=== PATIENT | female | born 1940 | race Caucasian/White ===

== ENCOUNTER → 2016-05-26 | Day surgery (SDC) | payer OTHER ==
[2016-05-15 10:20] VITALS: BMI 27.0
[~2016-05-26] VITALS: Ht 147.3 cm; Wt 60.0 kg
[~2016-05-26] MED LIST: ASPI-461 PO; ATOR-24 PO; ATOR-26 PO; B-COTAB18 PO; CALC600T9 PO; CIPR-255 PO; GLUCTAB7 PO; HYDR12.56 PO; LIDOCAINE HCL 2% 2 ML VIAL (20MG/ML) ONE; LISI40TA PO; MIDAZOLAM HCL 1 MG/ML 2ML VIAL ONE; MULT-190 PO; MULT-513 PO; NITR1CAP33 PO; OMEG10007 PO; ONDA4TAB46 PO; ONDANSETRON INJ 2 MG/ML 2 ML VIAL ONE; OXYC-57 PO; PHEN-775 PO; PROPOFOL IV EMULSION 10 MG/ML 20 ML VIAL IV ONE; SODIUM CHLORIDE 0.9% 500ML 500 ML IV ONE; TAMS0.4C38 PO; VENL75CA73 PO
[2016-05-26 12:10] VITALS: Ht 147.3 cm; Wt 60.0 kg
[2016-05-26 12:27] VITALS: TEMP 36.7
--- NOTE | 2016-05-26 12:58 | Endo History and Physical ---
History & Physical Date of Service: May 26, 2016. Chief Complaint: ROUTINE SCREENING Referring Physician: OLIVER BARBOZA History of Present Illness 75 yo CF who presents for screening colonoscopy. Past Surgical History Hx Cardiac Surgery: Yes (LT THROMBOENDARTERECTOMY, CARDIAC CATH, CABG X1) Hx Internal Defibrillator: No Hx Pacemaker: No Hx Abdominal Surgery: Yes (OOPHORECTOMY) Hx of Implantable Prosthesis: No Hx Post-Op Nausea and Vomiting: No Hx Cancer Surgery: No Hx Thoracic Surgery: No Hx Orthopedic: No Hx Urinary Tract Surgery: No Family History Colon CA Social History Smoking Status: Former Smoker Hx Substance Use: No Hx Alcohol Use: No Allergies Coded Allergies: Propoxyphene (Verified Allergy, Unknown, HEADACHE, 05/26/16) Simvastatin (Verified Adverse Reaction, Unknown, LEGS ACHE, 05/26/16) Current Medications Reported Home Medications Medications Dose Route/Sig Max Daily Dose Days Date Category Glucosamine Chondroitin (Bislywgnpnu-Fkrcmumzkfv-Tim C-) 1 Tab Tab 1 Tab PO BID 05/15/16 Reported [place]-3 (Fish Oil) 1 Ea Cap 1 Cap PO QAM 05/15/16 Reported Calcium + D (Calcium Carbonate-Vitamin D) 1 Tab Tab 1 Tab PO QAM 05/15/16 Reported Mvi With Minerals (Multivitamins/Minerals) Tab 1 Tab PO QAM 05/15/16 Reported Vitamin B Complex (B-Complex Vitamins) 1 Tab Tab 1 Tab PO QAM 05/15/16 Reported Venlafaxine Extended Rel (Venlafaxine Hcl) 75 Mg Cap 2 Tabs PO HS 05/15/16 Reported Lipitor (Atorvastatin Calcium) 40 Mg Tab 40 Mg PO HS 05/15/16 Reported Zestril (Lisinopril) 40 Mg Tab 40 Mg PO QAM 05/15/16 Reported Aspirin 81 Mg Tab 1 Tab PO QAM 05/15/16 Reported Vital Signs Weight (Kilograms): 60.00 Height (Feet): 4 Height (Inches): 10 Date Time Temp Pulse Resp B/P Pulse Ox O2 Delivery O2 Flow Rate FiO2 05/26/16 12:27 36.7 68 18 111/52 96 Room Air Physical Exam General Appearance: WD/WN, no apparent distress Respiratory/Chest: Auscultation: breath sounds normal Cardiovascular: Heart Auscultation: RRR Abdomen: Bowel Sounds: normal Inspection & Palpation: soft, non-distended, no tenderness, guarding & rebound Assessment and Plan Assessment: 75 yo CF who presents for screening colonoscopy. Plan: Proceed with colonoscopy.
--- NOTE | 2016-05-26 13:22 | Discharge Instructions ---
Endoscopy Patient Instructions Date / Procedure(s) Performed May 26, 2016. Colonoscopy Allergy Information Coded Allergies: Propoxyphene (Verified Allergy, Unknown, HEADACHE, 05/26/16) Simvastatin (Verified Adverse Reaction, Unknown, LEGS ACHE, 05/26/16) Discharge Date / Findings May 26, 2016. Colon polyp Diverticulosis Internal hemorrhoids Medication Instructions Stopped Medication(s): ASA 05/26/16 OK to resume all medications today as prescribed. Reported Home Medications Medications Dose Route/Sig Max Daily Dose Days Date Category Glucosamine Chondroitin (Lexppvglxni-Rsjdahmkdfl-Xtj C-) 1 Tab Tab 1 Tab PO BID 05/15/16 Reported [place]-3 (Fish Oil) 1 Ea Cap 1 Cap PO QAM 05/15/16 Reported Calcium + D (Calcium Carbonate-Vitamin D) 1 Tab Tab 1 Tab PO QAM 05/15/16 Reported Mvi With Minerals (Multivitamins/Minerals) Tab 1 Tab PO QAM 05/15/16 Reported Vitamin B Complex (B-Complex Vitamins) 1 Tab Tab 1 Tab PO QAM 05/15/16 Reported Venlafaxine Extended Rel (Venlafaxine Hcl) 75 Mg Cap 2 Tabs PO HS 05/15/16 Reported Lipitor (Atorvastatin Calcium) 40 Mg Tab 40 Mg PO HS 05/15/16 Reported Zestril (Lisinopril) 40 Mg Tab 40 Mg PO QAM 05/15/16 Reported Aspirin 81 Mg Tab 1 Tab PO QAM 05/15/16 Reported Provider Instructions Activity Restrictions - No exercising or heavy lifting for 24 hours. - Do not drink alcohol the day of the procedure. - Do not drive a car or operate machinery until the day after the procedure. - Do not make any important decisions or sign important papers in 24 hours after the procedure. Following Day: - Return to full activity which may include returning to work/school. Diet Start your diet with liquids and light foods (jello, soup, juice, toast). Then eat your usual diet if not nauseated. Treatment For Common After Affects For mild abdominal pain, bloating, or excessive gas: - Rest - Eat lightly - Lie on right side Follow-Up Information Follow-up with OLIVER BARBOZA as scheduled Anesthesia Information What You Should Know You have had a procedure that required some medicine to reduce anxiety and discomfort. This treatment is called moderate sedation. After receiving the treatment, you may be sleepy, but you will be able to breathe on your own. The effects of the treatment may last for several hours. Follow these instructions along with Activity/Diet recommendations noted above: * Do NOT do anything where dizziness or clumsiness would be dangerous. * Rest quietly at home today, then you can be up and about tomorrow. * Have a responsible person stay with you the rest of today. * You may have had an I.V. today. If so, you may take the dressing off later today. Recommendations Call your doctor if: * Trouble breathing * Continuous vomiting for more than 24 hours * Temperature above 101 degrees * Severe abdominal pain or bloating * Pain not relieved by pain medicine ordered * There is increased drainage or redness from any incision * A large amount of rectal bleeding greater than 2-3 tablespoons. (If you had a polyp/s removed or have hemorrhoids, a small amount of blood - from the rectum is to be expected.) * You have any unanswered questions or concerns. IN THE EVENT OF A SERIOUS EMERGENCY, GO TO THE NEAREST EMERGENCY ROOM Your discharge instructions were prepared by provider Ortega Carreon. Patient Instructions Signature Page Madelyn Sharp Patient (or Guardian) Signature/Date: I have read and understand the instructions given to me by my caregivers. Caregiver/RN/Doctor Signature/Date: The above-named patient and/or guardian has received patient instructions on this date. + Original Patient Signature Page (only) stays with chart. Please make copy for patient.
--- NOTE | 2016-05-26 13:25 | GI REPORT ---
Procedure Date: 05/26/2016 12:11 PM Procedure: Colonoscopy Indications: Screening for colorectal malignant neoplasm Medicines: Monitored Anesthesia Care Complications: No immediate complications. Estimated Blood Loss: Estimated blood loss: none. Procedure: Pre-Anesthesia Assessment: - Prior to the procedure, a History and Physical was performed, and patient medications and allergies were reviewed. The patient's tolerance of previous anesthesia was also reviewed. The risks and benefits of the procedure and the sedation options and risks were discussed with the patient. All questions were answered, and informed consent was obtained. Prior Anticoagulants: The patient has taken aspirin, last dose was 1 day prior to procedure. ASA Grade Assessment: III - A patient with severe systemic disease. After reviewing the risks and benefits, the patient was deemed in satisfactory condition to undergo the procedure. After I obtained informed consent, the scope was passed under direct vision. Throughout the procedure, the patient's blood pressure, pulse, and oxygen saturations were monitored continuously. The scope was introduced through the anus and advanced to the terminal ileum. The colonoscopy was performed without difficulty. The patient tolerated the procedure well. The quality of the bowel preparation was good. The terminal ileum, ileocecal valve, appendiceal orifice, and rectum were photographed. Findings: A 5 mm polyp was found in the cecum. The polyp was sessile. The polyp was removed with a hot snare. Resection and retrieval were complete. Multiple small-mouthed diverticula were found in the sigmoid colon. Non-bleeding internal hemorrhoids were found during retroflexion. The hemorrhoids were small. Impression: - One 5 mm polyp in the cecum, removed with a hot snare. Resected and retrieved. - Diverticulosis in the sigmoid colon. - Non-bleeding internal hemorrhoids. Recommendation: - Resume previous diet. - Continue present medications. - Repeat colonoscopy for surveillance based on pathology results. - Return to primary care physician as previously scheduled. Ortega Carreon DO 05/26/2016 1:25:46 PM This report has been signed electronically. Note Initiated On: 05/26/2016 12:11 PM I attest to the content of the Intraoperative Record and orders documented therein, exceptions below
--- NOTE | 2016-05-26 13:45 | Anesthesiology Progress Note ---
Anesthesia Post Op Note Date & Time May 26, 2016 at 13:46 Vital Signs Pain Intensity: 0 Vital Signs Past 12 Hours Date Time Temp Pulse Resp B/P Pulse Ox O2 Delivery O2 Flow Rate FiO2 05/26/16 13:22 59 18 164/58 95 Room Air 05/26/16 12:27 36.7 68 18 111/52 96 Room Air Notes Mental Status: alert / awake / arousable, participated in evaluation Pt Amnestic to Procedure: Yes Nausea / Vomiting: adequately controlled Pain: adequately controlled Airway Patency, RR, SpO2: stable & adequate BP & HR: stable & adequate Hydration State: stable & adequate Anesthetic Complications: no major complications apparent
[2016-05-26 13:52] VITALS: BP 147/65; PULSE 62; O2SAT 96
== END | disposition home or self-care (01) ==
LOC: C.GI 12:02
PROVIDERS: ATTEND Internal Medicine
DX: Z12.11 Encounter for screening for malignant neoplasm of colon (principal); I10 Essential (primary) hypertension; D12.0 Benign neoplasm of cecum; K57.30 Diverticulosis of large intestine without perforation or abscess without bleeding; Z68.28 Body mass index [BMI] 28.0-28.9, adult; F32.9 Major depressive disorder, single episode, unspecified; M19.90 Unspecified osteoarthritis, unspecified site; Z98.890 Other specified postprocedural states; Z87.891 Personal history of nicotine dependence; Z80.0 Family history of malignant neoplasm of digestive organs

== ENCOUNTER 2016-06-05 17:22 | Emergency (ER) | payer OTHER ==
[~2016-06-05] VITALS: Ht 147.3 cm; Wt 61.0 kg
[~2016-06-05 17:22] MED LIST changes: -ATOR-26 PO; -CIPR-255 PO; -HYDR12.56 PO; -LIDOCAINE HCL 2% 2 ML VIAL (20MG/ML) ONE; -MIDAZOLAM HCL 1 MG/ML 2ML VIAL ONE; -MULT-190 PO; -NITR1CAP33 PO; -ONDA4TAB46 PO; -ONDANSETRON INJ 2 MG/ML 2 ML VIAL ONE; -OXYC-57 PO; -PHEN-775 PO; -PROPOFOL IV EMULSION 10 MG/ML 20 ML VIAL IV ONE; -SODIUM CHLORIDE 0.9% 500ML 500 ML IV ONE; -TAMS0.4C38 PO
[2016-06-05 17:32] VITALS: TEMP 37; Ht 147.3 cm; Wt 61.0 kg
[2016-06-05] MEDS ORDERED: SODIUM CHLORIDE 0.9% 1000ML 1,000 ML IV STA (17:38)
[2016-06-05] MEDS ORDERED: ONDANSETRON INJ 2 MG/ML 2 ML VIAL IV STA (17:38)
[2016-06-05] MEDS ORDERED: HYDROmorphone INJ 1 MG/ML SYR IV STA (17:57)
[2016-06-05] MEDS ORDERED: KETOROLAC TROMETHAMINE 30 MG/ML VIAL IV STA (17:57)
[2016-06-05] MEDS ORDERED: ACETAMINOPHEN 500 MG TAB PO STA (17:57)
--- NOTE | 2016-06-05 18:03 | EMERGENCY ROOM VISIT NOTE ---
History Report prepared by Lester: Alin Kaplan Under the Supervision of: Dr. Ashley Moseley M.D. First contact with patient: 17:37 Chief Complaint: NAUSEA Stated Complaint: PAIN IN L SIDE, NAUSEA Nursing Triage Summary: Patient reports left sided abd pain and nausea for days but states it is worse today. Patient told she has diverticulosis after a recent colonoscopy History of Present Illness The patient is a 75 year old female who presents to the Emergency Room with complaints of worsening left sided abdominal pain that started a few days ago but is worse today. She rates her pain a 10/10 at this time. The patient had a routine colonoscopy performed last week which per the patient, showed diverticulosis. Source of History: patient Onset: Started a few days ago, worse today Position: abdomen Symptom Intensity: 10/10 Timing: worsening Modifying Factors (Worsening): other (None) Review of Systems See HPI for pertinent positives & negatives. A total of 10 systems reviewed and were otherwise negative. Family History Unknown Social History Smoking Status: Never Smoker Drug Use: none Marital Status: Housing Status: lives with significant other Current/Historical Medications Scheduled Aspirin (Aspirin), 1 TAB PO QAM Atorvastatin (Lipitor), 40 MG PO HS B-Complex Vitamins (Vitamin B Complex), 1 TAB PO QAM Calcium Carbonate-Vitamin D (Calcium + D), 1 TAB PO QAM Fish Oil ([place]-3), 1 CAP PO QAM Wcudjxdxvxa-Qfhrchkrbfv-Ues C- (Glucosamine Chondroitin), 1 TAB PO BID Lisinopril (Zestril), 40 MG PO QAM Multivitamins/Minerals (Mvi With Minerals), 1 TAB PO QAM Tamsulosin Hcl (Flomax), 0.4 MG PO DAILY Venlafaxine Hcl (Venlafaxine Extended Rel), 2 TABS PO HS Scheduled PRN Ondansetron Hcl (Zofran), 4 MG PO Q8H PRN for Nausea Oxycodone/Acetaminophen 5MG/325MG (Percocet 5MG/325MG), 1-2 TABS PO Q4H PRN for Pain Allergies Coded Allergies: Propoxyphene (Verified Allergy, Unknown, HEADACHE, 05/26/16) Simvastatin (Verified Adverse Reaction, Unknown, LEGS ACHE, 05/26/16) Physical Exam Vital Signs Date Time Temp Pulse Resp B/P Pulse Ox O2 Delivery O2 Flow Rate FiO2 06/05/16 21:10 66 20 127/68 94 06/05/16 20:55 66 20 112/49 93 Room Air 06/05/16 20:03 70 20 99/50 93 Room Air 06/05/16 18:46 69 06/05/16 17:32 37.0 70 20 169/79 95 Room Air Physical Exam CONSTITUTIONAL: Moderate painful distress HEENT: No icterus, moist mucous membranes NECK: No meningismus, trachea is midline. CARDIOVASCULAR: Regular rate, normal perfusion RESPIRATORY: Unlabored breathing. Clear to auscultation. GASTROINTESTINAL: Moderate left lower quadrant tenderness GENITOURINARY: No flank tenderness MUSCULOSKELETAL: Full range of motion NEUROLOGIC: No acute gross focal deficits. PSYCHIATRIC: Normal affect SKIN: Normal for ethnicity. Medical Decision & Procedures ER Provider Diagnostic Interpretation: CT results as stated below per my review and radiologist interpretation. ABDOMEN AND PELVIS CT WITH IV CONTRAST CT DOSE: 316.68 mGy.cm HISTORY: Flank and abdominal pain left flank pain TECHNIQUE: Multiaxial CT images of the abdomen and pelvis were performed following the use of intravenous contrast. COMPARISON STUDY: None. FINDINGS: Lung bases are clear. Liver is uniform throughout. Gallstones are present within the gallbladder lumen. There kidneys demonstrate several very small cortical cysts. There is a partially obstructing proximal left ureteral calculus measuring 3.5 mm. Mild fullness left renal collecting system but no daisy hydronephrosis. Spleen is uniform. Bowel pattern is nonobstructive. Scattered colonic diverticuli are present with no evidence for diverticulitis. Bladder is midline. Inguinal regions are unremarkable. IMPRESSION: 1. Partially obstructing 3.5 mm calculus proximal left ureter. 2. Gallstones. 3. Nonobstructive bowel pattern. Electronically signed by: Elmo Staley M.D. 06/05/2016 7:49 PM Dictated Date/Time: 06/05/2016 7:46 PM Laboratory Results 06/05/16 18:30 Red Blood Count 4.28, Mean Corpuscular Volume 93.9, Mean Corpuscular Hemoglobin 33.6, Mean Corpuscular Hemoglobin Concent 35.8, Mean Platelet Volume 10.5, Neutrophils (%) (Auto) 80.3, Lymphocytes (%) (Auto) 11.4, Monocytes (%) (Auto) 7.5, Eosinophils (%) (Auto) 0.4, Basophils (%) (Auto) 0.2, Neutrophils # (Auto) 11.12, Lymphocytes # (Auto) 1.58, Monocytes # (Auto) 1.04, Eosinophils # (Auto) 0.05, Basophils # (Auto) 0.03 06/05/16 18:30 Test 06/05/16 18:15 06/05/16 18:30 Urine Color DK YELLOW Urine Appearance TURBID (CLEAR) Urine pH 5.0 (4.5-7.5) Urine Specific [place] 1.023 (1.000-1.030) Urine Protein TRACE (NEG) Urine Glucose (UA) NEG (NEG) Urine Ketones TRACE (NEG) Urine Occult Blood 3+ (NEG) Urine Nitrite POS (NEG) Urine Bilirubin NEG (NEG) Urine Urobilinogen NEG (NEG) Urine Leukocyte Esterase SMALL (NEG) Urine WBC (Auto) 1-5 /hpf (0-5) Urine RBC (Auto) >30 /hpf (0-4) Urine Hyaline Casts (Auto) 1-5 /lpf (0-5) Urine Epithelial Cells (Auto) 20-30 /lpf (0-5) Urine Bacteria (Auto) NEG (NEG) Urine Crystals CALCIUM OXALATE (NONE Urine Mucus PRESENT (NONE PRSENT) White Blood Count 13.85 K/uL (4.8-10.8) Red Blood Count 4.28 M/uL (4.2-5.4) Hemoglobin 14.4 g/dL (12.0-16.0) Hematocrit 40.2 % (37-47) Mean Corpuscular Volume 93.9 fL (80-100) Mean Corpuscular Hemoglobin 33.6 pg (25-34) Mean Corpuscular Hemoglobin Concent 35.8 g/dl (32-36) Platelet Count 192 K/uL (130-400) Mean Platelet Volume 10.5 fL (7.4-10.4) Neutrophils (%) (Auto) 80.3 % Lymphocytes (%) (Auto) 11.4 % Monocytes (%) (Auto) 7.5 % Eosinophils (%) (Auto) 0.4 % Basophils (%) (Auto) 0.2 % Neutrophils # (Auto) 11.12 K/uL (1.4-6.5) Lymphocytes # (Auto) 1.58 K/uL (1.2-3.4) Monocytes # (Auto) 1.04 K/uL (0.11-0.59) Eosinophils # (Auto) 0.05 K/uL (0-0.5) Basophils # (Auto) 0.03 K/uL (0-0.2) RDW Standard Deviation 43.9 fL (36.4-46.3) RDW Coefficient of Variation 12.8 % (11.5-14.5) Immature Granulocyte % (Auto) 0.2 % Immature Granulocyte # (Auto) 0.03 K/uL (0.00-0.02) Anion Gap 10.0 mmol/L (3-11) Est Creatinine Clear Calc Drug Dose 29.3 ml/min Estimated GFR () 46.8 Estimated GFR (Non- 40.4 BUN/Creatinine Ratio 20.4 (10-20) Calcium Level 9.8 mg/dl (8.5-10.1) Total Bilirubin 0.8 mg/dl (0.2-1) Direct Bilirubin 0.2 mg/dl (0-0.2) Aspartate Amino Transf (AST/SGOT) 36 U/L (15-37) Alanine Aminotransferase (ALT/SGPT) 45 U/L (12-78) Alkaline Phosphatase 92 U/L (45-117) Troponin I < 0.015 ng/ml (0-0.045) Total Protein 7.4 gm/dl (6.4-8.2) Albumin 3.8 gm/dl (3.4-5.0) Lipase 102 U/L (73-393) Labs reviewed by ED physician. Medications Administered Medications (Trade) Dose Ordered Sig/Maciel Route Start Time Stop Time Status Last Admin Dose Admin Sodium Chloride (Nss 1000ml) 1,000 ml @ 0 mls/hr Q0M STAT IV 06/05/16 17:38 06/05/16 17:39 DC 06/05/16 18:31 0 MLS/HR Ondansetron HCl (Zofran Inj) 4 mg NOW STAT IV 06/05/16 17:38 06/05/16 17:39 DC 06/05/16 18:30 4 MG Acetaminophen (Tylenol Tab) 1,000 mg NOW STAT PO 06/05/16 17:57 06/05/16 18:00 DC 06/05/16 18:30 1,000 MG Ketorolac Tromethamine (Toradol Inj) 15 mg NOW STAT IV 06/05/16 17:57 06/05/16 18:00 DC 06/05/16 18:30 15 MG Hydromorphone HCl (Dilaudid Inj) 1 mg PRN STAT IV 06/05/16 17:57 06/05/16 18:00 DC 06/05/16 18:31 1 MG Ondansetron HCl (ZOFRAN ODT 4MG Home Pack) 1 homepack UD ONCE PO 06/05/16 21:00 06/05/16 21:01 DC 06/05/16 21:06 1 HOMEPACK Oxycodone/ Acetaminophen (Percocet 5/ 325MG Home Pack) 1 homepack UD ONCE PO 06/05/16 21:00 06/05/16 21:01 DC 06/05/16 21:06 1 HOMEPACK ED Course 1730: Past medical records reviewed. The patient was evaluated in room B4. A complete history and physical examination was performed. 1738: Ordered Zofran Injection 4 mg IV, Sodium Chloride 1,000 ml @ 0 mls/hr Wide Open IV. 1757: Ordered Dilaudid Injection 1 mg IV, Toradol Injection 15 mg IV, Tylenol Tablet 1,000 mg PO. 2100: Ordered Oxycodone/ Acetaminophen 1 homepack PO, Ondansetron HCL 1 homepack PO. 2101: Upon reexamination the patient is resting more comfortably. I discussed results and treatment plan with the patient. She verbalizes agreement and understanding. The patient is ready for discharge. Medical Decision Differential diagnoses include but are not limited to; Pyelonephritis, diverticulitis, UTI. 75-year-old presents to the emergency department for evaluation of vague left lower quadrant pain as well as nausea. CT 3.5 mm stone. Comfortable on reexamination after antiemetics and analgesics. Rx Zofran, Flomax, Percocet when necessary. Impression Primary Impression: Kidney stone Scribe Attestation The scribe's documentation has been prepared under my direction and personally reviewed by me in its entirety. I confirm that the note above accurately reflects all work, treatment, procedures, and medical decision making performed by me. Departure Information Dispostion Home / Self-Care Prescriptions Ondansetron Hcl (ZOFRAN) 4 Mg Tab 4 MG PO Q8H Y for Nausea, #20 TAB Prov: Ashley Moseley MD 06/05/16 Oxycodone/Acetaminophen 5MG/325MG (PERCOCET 5MG/325MG) Tab 1-2 TABS PO Q4H Y for Pain, #20 TAB Prov: Ashley Moseley MD 06/05/16 Tamsulosin Hcl (FLOMAX) 0.4 Mg Cap 0.4 MG PO DAILY for 10 Days, #10 CAP Prov: Ashley Moseley MD 06/05/16 Referrals Daisy Sullivan M.D. (PCP) Forms HOME CARE DOCUMENTATION FORM, IMPORTANT VISIT INFORMATION Patient Instructions My [facility] Additional Instructions Take Tylenol 650 mg and Motrin 600 mg every 6 hours as needed for pain. This is insufficient for pain relief he may also take the prescription for Percocet with these every 6 hours. Continue to take the Rx: Flomax as this will help the stone pass. Rx: zofran is to be taken as needed for nausea.
[2016-06-05] MEDS ORDERED: OPTIRAY 320 IV PRN (18:15)
[2016-06-05 18:49] LABS: BASO % 0.2 %; BASO ABS # 0.03 K/uL (0-0.2); COMPLETE YES; EOS % 0.4 %; HEMATOCRIT 40.2 % (37-47); IG% 0.2 %; LYMPH % 11.4 %; LYMPH ABS # 1.58 K/uL (1.2-3.4); MEAN CELL VOLUME 93.9 fL (80-100); MEAN CORPUSCULAR HEMOGLOBIN 33.6 pg (25-34); MEAN CORPUSCULAR HGB CONC 35.8 g/dl (32-36); MEAN PLATELET VOLUME 10.5 fL (7.4-10.4); MONO % 7.5 %; NEUT % 80.3 %; PLATELET COUNT 192 K/uL (130-400); RED BLOOD COUNT 4.28 M/uL (4.2-5.4); WHITE BLOOD COUNT 13.85 K/uL (4.8-10.8)
[2016-06-05 19:07] LABS: ALT/SGPT 45 U/L (12-78); AST/SGOT 36 U/L (15-37); BLOOD UREA NITROGEN 27 mg/dl (7-18); BUN/CREATININE RATIO 20.4 (10-20); CALCIUM 9.8 mg/dl (8.5-10.1); CARBON DIOXIDE 26 mmol/L (21-32); CHLORIDE 105 mmol/L (98-107); GLUCOSE 115 mg/dl (70-99); POTASSIUM 4.4 mmol/L (3.5-5.1); SODIUM 141 mmol/L (136-145)
[2016-06-05 19:12] LABS: ALKALINE PHOSPHATASE 92 U/L (45-117)
[2016-06-05 19:12] LABS: URINE APPEARANCE TURBID (CLEAR); URINE BILIRUBIN NEG (NEG); URINE COLOR DK YELLOW; URINE EPITHELIAL CELL AUTO 20-30 /lpf (0-5); URINE NITRITE POS (NEG); URINE SPECIFIC GRAVITY 1.023 (1.000-1.030); UROBILINOGEN NEG (NEG); ZZUR CULT IF INDIC CLEAN CATCH NO
[2016-06-05 19:17] LABS: MANUAL MICROSCOPIC REQUIRED? NO; REVIEW REQ? YES
[2016-06-05 19:37] LABS: URINE MUCUS PRESENT (NONE PRSENT)
--- NOTE | 2016-06-05 19:50 | DIAGNOSTIC IMAGING REPORT ---
ABDOMEN AND PELVIS CT WITH IV CONTRAST CT DOSE: 316.68 mGy.cm HISTORY: Flank and abdominal pain left flank pain TECHNIQUE: Multiaxial CT images of the abdomen and pelvis were performed following the use of intravenous contrast. COMPARISON STUDY: None. FINDINGS: Lung bases are clear. Liver is uniform throughout. Gallstones are present within the gallbladder lumen. There kidneys demonstrate several very small cortical cysts. There is a partially obstructing proximal left ureteral calculus measuring 3.5 mm. Mild fullness left renal collecting system but no daisy hydronephrosis. Spleen is uniform. Bowel pattern is nonobstructive. Scattered colonic diverticuli are present with no evidence for diverticulitis. Bladder is midline. Inguinal regions are unremarkable. IMPRESSION: 1. Partially obstructing 3.5 mm calculus proximal left ureter. 2. Gallstones. 3. Nonobstructive bowel pattern. Electronically signed by: Elmo Staley M.D. 06/05/2016 7:49 PM Dictated Date/Time: 06/05/2016 7:46 PM
[2016-06-05] MEDS ORDERED: TAMS0.4C38 PO (20:50)
[2016-06-05] MEDS ORDERED: OXYC-57 PO (20:51)
[2016-06-05] MEDS ORDERED: ONDA4TAB46 PO (20:52)
[2016-06-05] MEDS ORDERED: PERCOCET HOME PACK PO ONE (21:00)
[2016-06-05] MEDS ORDERED: ONDANSETRON HOME PACK 4MG OD TAB PO ONE (21:00)
[2016-06-05 21:10] VITALS: BP 127/68; PULSE 66; O2SAT 94
[2016-07-11] MEDS ORDERED: ONDA4TAB46 PO (09:21)
[2016-07-11] MEDS ORDERED: OXYC-57 PO (09:21)
[2016-07-18] MEDS ORDERED: NITR1CAP33 PO (08:32)
[2016-08-06] MEDS ORDERED: TAMS0.4C38 PO (15:02)
[2016-08-19] MEDS ORDERED: PHEN-775 PO (11:19)
[2016-08-19] MEDS ORDERED: CIPR-255 PO (11:19)
[2016-12-09] MEDS ORDERED: HYDR12.56 PO (12:48)
[2016-12-09] MEDS ORDERED: MULT-190 PO (12:48)
[2016-12-09] MEDS ORDERED: ATOR-26 PO (12:48)
== END 2016-06-05 21:12 | disposition home or self-care (01) ==
LOC: C.EDB 17:24
DX: N20.2 Calculus of kidney with calculus of ureter (principal); K80.20 Calculus of gallbladder without cholecystitis without obstruction; N28.1 Cyst of kidney, acquired

== ENCOUNTER → 2016-06-17 | Outpatient (CLI) | payer OTHER ==
[~2016-06-17] MED LIST changes: +ATOR-26 PO; +CIPR-255 PO; +HYDR12.56 PO; +MULT-190 PO; +NITR1CAP33 PO; +ONDA4TAB46 PO; +OXYC-57 PO; +PHEN-775 PO; +TAMS0.4C38 PO
== END | disposition home or self-care (01) ==
LOC: C.LABSPEC 11:10
PROVIDERS: ATTEND Nurse Practitioner Adult Health
DX: N20.1 Calculus of ureter (principal)

== ENCOUNTER → 2016-06-23 | Outpatient (CLI) | payer OTHER ==
--- NOTE | 2016-06-23 09:08 | DIAGNOSTIC IMAGING REPORT ---
KUB HISTORY: N20.1 Left ureteral stone COMPARISON: Abdomen and pelvis CT 2. 1617. FINDINGS: The bowel gas pattern is unremarkable. There are no dilated loops of small bowel to suggest an obstruction. No renal stones identified. There is a 4 mm calcification within the left deep pelvis. This may represent a distal left ureteral stone. Punctate calcification within the right deep pelvis is nonspecific but may represent a phlebolith. Cholelithiasis. No pneumoperitoneum or pneumatosis. IMPRESSION: A 4 mm calcification within the left deep pelvis which may represent a distal left ureteral stone. Electronically signed by: Nacho Martinez M.D. 06/23/2016 9:07 AM Dictated Date/Time: 06/23/2016 9:04 AM
== END | disposition home or self-care (01) ==
LOC: C.RAD 08:32
PROVIDERS: ATTEND Nurse Practitioner Adult Health
DX: N20.1 Calculus of ureter (principal)

== ENCOUNTER → 2016-07-09 | Outpatient (CLI) | payer OTHER ==
[2016-07-09 12:06] LABS: BASO % 0.4 %; BASO ABS # 0.03 K/uL (0-0.2); COMPLETE YES; EOS % 3.9 %; HEMATOCRIT 38.7 % (37-47); IG% 0.1 %; LYMPH ABS # 2.51 K/uL (1.2-3.4); MEAN CELL VOLUME 95.8 fL (80-100); MEAN CORPUSCULAR HEMOGLOBIN 33.7 pg (25-34); MEAN CORPUSCULAR HGB CONC 35.1 g/dl (32-36); MEAN PLATELET VOLUME 10.6 fL (7.4-10.4); MONO % 7.9 %; NEUT % 51.7 %; PLATELET COUNT 197 K/uL (130-400); RED BLOOD COUNT 4.04 M/uL (4.2-5.4); WHITE BLOOD COUNT 6.97 K/uL (4.8-10.8)
--- NOTE | 2016-07-09 12:19 | DIAGNOSTIC IMAGING REPORT ---
TWO VIEW CHEST CLINICAL HISTORY: Nephrolithiasis. Preoperative examination. FINDINGS: PA and lateral chest radiographs are compared to study dated 04/06/2014. The cardiomediastinal silhouette is unremarkable. Surgical clips project over the superior mediastinum. There is atherosclerotic calcification of the thoracic aorta. There are low lung volumes. Chronic interstitial thickening is unchanged. The lungs and pleural spaces are otherwise clear. There is no pneumothorax. The skeletal structures are osteopenic. Mild degenerative change is noted throughout the thoracic spine. Calcified gallstones are noted in the right upper quadrant. IMPRESSION: 1. No active disease in the chest. 2. Cholelithiasis. Electronically signed by: Sacha Boston M.D. 07/09/2016 12:17 PM Dictated Date/Time: 07/09/2016 12:16 PM
[2016-07-09 12:36] LABS: BLOOD UREA NITROGEN 22 mg/dl (7-18); BUN/CREATININE RATIO 27.1 (10-20); CARBON DIOXIDE 31 mmol/L (21-32); CHLORIDE 106 mmol/L (98-107); CREATININE 0.82 mg/dl (0.60-1.20); POTASSIUM 4.5 mmol/L (3.5-5.1); SODIUM 143 mmol/L (136-145)
== END | disposition home or self-care (01) ==
LOC: C.RAD 11:23
PROVIDERS: ATTEND Nurse Practitioner Adult Health
DX: N20.0 Calculus of kidney (principal); K80.20 Calculus of gallbladder without cholecystitis without obstruction

== ENCOUNTER → 2016-07-09 | Outpatient (CLI) | payer OTHER ==
--- NOTE | 2016-07-09 09:27 | DIAGNOSTIC IMAGING REPORT ---
KUB HISTORY: N20.0 [id number] COMPARISON: KUB 06/23/2016. FINDINGS: The bowel gas pattern is unremarkable. There are no dilated loops of small bowel to suggest an obstruction. No change in the 4 mm calcification within the left deep pelvis. This may represent a distal left ureteral stone. Small irregular density along the right side of the coccyx may represent old barium in a diverticulum. No renal stones identified. Cholelithiasis. Moderate stool seen within the colon. No pneumoperitoneum or pneumatosis. IMPRESSION: No change in the 4 mm calcification within the left deep pelvis which likely represents a distal left ureteral stone. Electronically signed by: Nacho Martinez M.D. 07/09/2016 9:26 AM Dictated Date/Time: 07/09/2016 9:23 AM
== END | disposition home or self-care (01) ==
LOC: C.RAD 08:59
PROVIDERS: ATTEND Internal Medicine Geriatric Medicine
DX: N20.0 Calculus of kidney (principal)

== ENCOUNTER → 2016-07-18 | Day surgery (SDC) | payer OTHER ==
[2016-07-11 09:22] VITALS: Ht 147.3 cm; Wt 59.5 kg
--- NOTE | 2016-07-17 15:00 | DIAGNOSTIC IMAGING REPORT ---
KUB CLINICAL HISTORY: N20.0 Nephrolithiasis nephrocalcinosis COMPARISON STUDY: 07/09/2016 FINDINGS: No change in the distal left ureteral calculus. Several faint calcifications to the left of the L3 vertebral body and associated transverse process. This may relate to bowel content. Several punctate calcifications medial left kidney unchanged. IMPRESSION: Left sided nephrocalcinosis similar. 2. Distal left ureteral calculus unchanged Electronically signed by: Elmo Staley M.D. 07/17/2016 2:59 PM Dictated Date/Time: 07/17/2016 2:58 PM
[~2016-07-18] VITALS: Ht 147.3 cm; Wt 59.5 kg
[~2016-07-18] MED LIST changes: +ATROPINE SULFATE 0.1 MG/ML 5ML SYR IV PRN; +CIPROFLOXACIN 400MG / D5W IV SCH; +DEXAMETHASONE SOD INJ 4 MG/ML VIAL ONE; +EpHEDrine SULFATE INJ 50 MG/ML AMP IV PRN; +FENTANYL CITRATE INJ 50 MCG/1 ML 2 ML VIAL IV PRN; +FENTANYL CITRATE INJ 50 MCG/1 ML 2 ML VIAL ONE; +FLUMAZENIL 0.1 MG/1 ML 10 ML VIAL IV PRN; +HYDROmorphone INJ 2 MG/ML SYR/VIAL IV PRN; +LABETALOL HCL IV 5 MG/ML 20ML IV PRN; +LACTATED RINGER'S 1000ML 1,000 ML IV SCH; +LIDOCAINE HCL 2% 2 ML VIAL (20MG/ML) ONE; +MEPERIDINE HCL 25 MG/ML CARP IV PRN; +MIDAZOLAM HCL 1 MG/ML 2ML VIAL ONE; +NALOXONE HCL 0.4 MG/1 ML VIAL/CARP IV PRN; +ONDANSETRON INJ 2 MG/ML 2 ML VIAL IV PRN; +ONDANSETRON INJ 2 MG/ML 2 ML VIAL ONE; +PHENYLEPHRINE 100MCG/ML 5ML SYR IV PRN; +PROPOFOL IV EMULSION 10 MG/ML 20 ML VIAL IV ONE
--- NOTE | 2016-07-18 07:42 | History & Physical Bridge - SC ---
H&P Re-Evaluation Bridge Note: I have examined the patient, reviewed the History & Physical and in the interval since the performance of the History & Physical I have noted the following changes of clinical significance: No changes noted
--- NOTE | 2016-07-18 08:34 | Discharge Instructions ---
Discharge Instructions Date of Service Jul 18, 2016. Visit Reason for Visit: Stones Discharge Discharge Diagnosis / Problem: left ureteral stone Discharge Goals Goal(s): Increase independence Medications Stopped Medications Name(s): ASPIRIN AND FISH OIL HELD FOR ONE WEEK Activity Recommendations Activity Limitations: resume your previous activity Anesthesia . Post Anesthesia Instructions: If you have had General Anesthesia or IV Sedation: * Do not drive today. * Resume driving when surgeon permits. * Do not make important decisions or sign legal documents today. * Call surgeon for: 1. Temperature elevations greater than 101 degrees F. 2. Uncontrollable pain. 3. Excessive bleeding. 4. Persistent nausea and vomiting. 5. Medication intolerance (nausea, vomiting or rash). * For nausea and vomiting use only clear liquids such as: tea, soda, bouillon until nausea subsides, then gradually increase diet as tolerated. * If you have any concerns or questions, call your surgeon's office. If physician is unavailable and it is an emergency, call 911 or go to the nearest emergency room. . Diet Recommendations Recommended Home Diet: resume previous diet Procedures Procedures Performed: Left Extracorporeal Shock Wave Lithotripsy - Ureteral Pending Studies Studies pending at discharge: no Medical Emergencies . Who to Call and When: Medical Emergencies: If at any time you feel your situation is an emergency, please call 911 immediately. . Non-Emergent Contact Non-Emergency issues call your: Urologist . . "Provider Documentation" section prepared by Ari Ochoa.
--- NOTE | 2016-07-18 08:36 | [facility] Post Operative Brief Note ---
Immediate Operative Summary Operative Date Jul 18, 2016. Pre-Operative Diagnosis Left Ureteral Calculi Post-Operative Diagnosis Same Procedure(s) Performed Left Extracorporeal Shock Wave Lithotripsy - Ureteral Surgeon Dr. Tavon Ochoa Electric Pile Driver Operator Surgeon(s) None Estimated Blood Loss 0 mL Findings l uvj stone
[2016-07-18 09:25] VITALS: TEMP 36.6
--- NOTE | 2016-07-18 09:25 | Anesthesia Progress Nt - [facility] ---
Anesthesia Post Op Note Date & Time Jul 18, 2016 at 09:25 Vital Signs Pain Intensity: 0 Vital Signs Past 12 Hours Date Time Temp Pulse Resp B/P Pulse Ox O2 Delivery O2 Flow Rate FiO2 07/18/16 08:39 36.3 56 12 133/58 97 Mask 6 07/18/16 06:22 36.7 67 16 137/79 96 Room Air Notes Mental Status: alert / awake / arousable, participated in evaluation Pt Amnestic to Procedure: Yes Nausea / Vomiting: adequately controlled Pain: adequately controlled Airway Patency, RR, SpO2: stable & adequate BP & HR: stable & adequate Hydration State: stable & adequate Anesthetic Complications: no major complications apparent
[2016-07-18 10:04] VITALS: BP 130/75; PULSE 65; O2SAT 96
--- NOTE | 2016-07-18 12:12 | OPERATIVE REPORT ---
DATE OF OPERATION: 07/18/2016 PROCEDURE PERFORMED: Left ureteral ESWL. SURGEON: Dr. Ochoa. INDICATIONS: The patient is a 75-year-old female with a distal left ureteral stone and was given the option of ureteroscopy or ESWL and wished to try ESWL. DESCRIPTION OF THE PROCEDURE: She was taken to the OR where she was given antibiotics and had Venodyne stockings placed, was given general anesthesia, placed in the supine position. The stone was localized from over the top and she received 3,000 shocks, the majority at level 6. At the end of the procedure, the patient was transferred to recovery room in stable condition. I attest to the content of the Intraoperative Record and any orders documented therein. Any exceptio ns are noted below.
== END | disposition home or self-care (01) ==
LOC: X.SURG 06:12
PROVIDERS: ATTEND Urology
DX: N20.1 Calculus of ureter (principal); I10 Essential (primary) hypertension; K57.92 Diverticulitis of intestine, part unspecified, without perforation or abscess without bleeding; F32.9 Major depressive disorder, single episode, unspecified; E78.5 Hyperlipidemia, unspecified; K64.8 Other hemorrhoids; M19.90 Unspecified osteoarthritis, unspecified site; I86.8 Varicose veins of other specified sites; Z95.1 Presence of aortocoronary bypass graft

== ENCOUNTER → 2016-07-28 | Outpatient (CLI) | payer OTHER ==
[~2016-07-28] MED LIST changes: -ATROPINE SULFATE 0.1 MG/ML 5ML SYR IV PRN; -CIPROFLOXACIN 400MG / D5W IV SCH; -DEXAMETHASONE SOD INJ 4 MG/ML VIAL ONE; -EpHEDrine SULFATE INJ 50 MG/ML AMP IV PRN; -FENTANYL CITRATE INJ 50 MCG/1 ML 2 ML VIAL IV PRN; -FENTANYL CITRATE INJ 50 MCG/1 ML 2 ML VIAL ONE; -FLUMAZENIL 0.1 MG/1 ML 10 ML VIAL IV PRN; -HYDROmorphone INJ 2 MG/ML SYR/VIAL IV PRN; -LABETALOL HCL IV 5 MG/ML 20ML IV PRN; -LACTATED RINGER'S 1000ML 1,000 ML IV SCH; -LIDOCAINE HCL 2% 2 ML VIAL (20MG/ML) ONE; -MEPERIDINE HCL 25 MG/ML CARP IV PRN; -MIDAZOLAM HCL 1 MG/ML 2ML VIAL ONE; -NALOXONE HCL 0.4 MG/1 ML VIAL/CARP IV PRN; -ONDANSETRON INJ 2 MG/ML 2 ML VIAL IV PRN; -ONDANSETRON INJ 2 MG/ML 2 ML VIAL ONE; -PHENYLEPHRINE 100MCG/ML 5ML SYR IV PRN; -PROPOFOL IV EMULSION 10 MG/ML 20 ML VIAL IV ONE
--- NOTE | 2016-07-28 09:18 | DIAGNOSTIC IMAGING REPORT ---
[facility] CLINICAL HISTORY: Nephrolithiasis. COMPARISON STUDY: CT of the abdomen and pelvis June 05, 2016 and KUB July 17, 2016. FINDINGS: Interval note is made of multiple gallstones within the gallbladder. There is no evidence for a bowel obstruction. There is a moderate amount of stool within the colon and the rectum. A 4 mm left pelvic calcification is similar in position to exam of July 17, 2016. This suggests a distal left ureteral calculus. A new 3 mm left pelvic calcification could reflect an additional calculus or fragment at the ureterovesical junction. IMPRESSION: 1. No significant change in position of a 4 mm left pelvic calcification which suggests a distal ureteral calculus. 2. Additional 3 mm left pelvic calcification which could reflect a calculus/fragment at the ureterovesical junction. Electronically signed by: Joe Leon M.D. 07/28/2016 9:16 AM Dictated Date/Time: 07/28/2016 9:11 AM
== END | disposition home or self-care (01) ==
LOC: C.RAD 08:44
PROVIDERS: ATTEND Nurse Practitioner Adult Health
DX: N20.0 Calculus of kidney (principal)

== ENCOUNTER → 2016-08-04 | Outpatient (CLI) | payer OTHER ==
[~2016-08-04] MED LIST changes: -NITR1CAP33 PO
[2016-08-04 12:33] LABS: BASO % 0.5 %; BASO ABS # 0.04 K/uL (0-0.2); COMPLETE YES; HEMATOCRIT 39.6 % (37-47); IG% 0.2 %; LYMPH % 28.4 %; LYMPH ABS # 2.43 K/uL (1.2-3.4); MEAN CELL VOLUME 96.8 fL (80-100); MEAN CORPUSCULAR HGB CONC 34.1 g/dl (32-36); MEAN PLATELET VOLUME 10.8 fL (7.4-10.4); MONO % 8.8 %; NEUT % 58.1 %; PLATELET COUNT 207 K/uL (130-400); RED BLOOD COUNT 4.09 M/uL (4.2-5.4); WHITE BLOOD COUNT 8.57 K/uL (4.8-10.8)
[2016-08-04 12:51] LABS: URINE APPEARANCE CLEAR (CLEAR); URINE BILIRUBIN NEG (NEG); URINE COLOR YELLOW; URINE EPITHELIAL CELL AUTO >30 /lpf (0-5); URINE NITRITE NEG (NEG); URINE PH 7.5 (4.5-7.5); URINE SPECIFIC GRAVITY 1.014 (1.000-1.030); UROBILINOGEN NEG (NEG)
[2016-08-04 12:54] LABS: MANUAL MICROSCOPIC REQUIRED? NO; REVIEW REQ? NO
[2016-08-04 13:31] LABS: BLOOD UREA NITROGEN 23 mg/dl (7-18); BUN/CREATININE RATIO 27.3 (10-20); CARBON DIOXIDE 28 mmol/L (21-32); CHLORIDE 108 mmol/L (98-107); CREATININE 0.84 mg/dl (0.60-1.20); GLUCOSE 120 mg/dl (70-99); POTASSIUM 4.2 mmol/L (3.5-5.1); SODIUM 144 mmol/L (136-145)
[2016-08-04 13:36] LABS: CALCIUM 8.6 mg/dl (8.5-10.1)
== END | disposition home or self-care (01) ==
LOC: C.LABPBG 10:15
PROVIDERS: ATTEND Urology
DX: N20.0 Calculus of kidney (principal)

== ENCOUNTER 2016-08-19 09:23 | Day surgery (SDC) | payer OTHER ==
[2016-08-06 15:02] VITALS: BMI 27.0
[~2016-08-19] VITALS: Ht 147.3 cm; Wt 59.5 kg
[~2016-08-19 09:23] MED LIST changes: -ATOR-26 PO; -CIPR-255 PO; +CIPROFLOXACIN / D5W 400 MG IV SCH; -HYDR12.56 PO; +LACTATED RINGER'S 1000ML 1,000 ML IV SCH; -MULT-190 PO; -ONDA4TAB46 PO; -PHEN-775 PO
[2016-08-19 09:59] VITALS: BP 159/64; PULSE 62; TEMP 36.6; O2SAT 98; Ht 147.3 cm; Wt 59.5 kg
[2016-08-19] MEDS ORDERED: FENTANYL CITRATE INJ 50 MCG/1 ML 2 ML VIAL ONE (10:25)
[2016-08-19] MEDS ORDERED: MIDAZOLAM HCL 1 MG/ML 2ML VIAL ONE (10:25)
[2016-08-19] MEDS ORDERED: ONDANSETRON INJ 2 MG/ML 2 ML VIAL IV PRN (10:30)
[2016-08-19] MEDS ORDERED: PROMETHAZINE HCL INJ 6.25 MG in SODIUM CHLORIDE 0.9% 50ML 50 ML IV PRN (10:30)
[2016-08-19] MEDS ORDERED: EpHEDrine SULFATE INJ 50 MG/ML AMP IV PRN (10:30)
[2016-08-19] MEDS ORDERED: FENTANYL CITRATE INJ 50 MCG/1 ML 2 ML VIAL IV PRN (10:30)
[2016-08-19] MEDS ORDERED: ATROPINE SULFATE 0.1 MG/ML 5ML SYR IV PRN (10:30)
[2016-08-19] MEDS ORDERED: ONDANSETRON INJ 2 MG/ML 2 ML VIAL ONE (10:52)
[2016-08-19] MEDS ORDERED: PROPOFOL IV EMULSION 10 MG/ML 20 ML VIAL IV ONE (10:52)
[2016-08-19] MEDS ORDERED: LIDOCAINE HCL 2% 2 ML VIAL (20MG/ML) ONE (10:52)
[2016-08-19] MEDS ORDERED: PHENYLEPHRINE 100MCG/ML 5ML SYR ONE (10:53)
[2016-08-19] MEDS ORDERED: EpHEDrine SULFATE 50MG/5ML SYR ONE (10:53)
--- NOTE | 2016-08-19 11:17 | [facility] Post Operative Brief Note ---
Immediate Operative Summary Operative Date August 19, 2016. Pre-Operative Diagnosis Left Ureteral Stone Post-Operative Diagnosis Left Ureteral Stone Procedure(s) Performed Cystoscopy, Left Ureteroscopy, Laser Lithotripsy; Left Ureteral Stent ([id number] with string) Surgeon Dr. Jorje Asher Student Development Dean Surgeon(s) None Estimated Blood Loss 0 ml Findings Small stone in the distal left ureter x2 Specimens None per surgeon Drains [id number] stent with string Anesthesia gen Complication(s) None Disposition Recovery Room / PACU (stable)
[2016-08-19] MEDS ORDERED: CIPR-255 PO (11:19)
[2016-08-19] MEDS ORDERED: PHEN-775 PO (11:19)
[2016-08-19] MEDS ORDERED: SODIUM CHLORIDE 0.9% 1000ML 1,000 ML IV SCH (11:20)
--- NOTE | 2016-08-19 11:24 | Discharge Instructions ---
Discharge Instructions Date of Service August 19, 2016. Admission Reason for Admission: Stones Discharge Discharge Diagnosis / Problem: Stones Discharge Goals Goal(s): Decrease discomfort, Improve function, Increase independence, Improve disease control Activity Recommendations Activity Limitations: resume your previous activity Lifting Limitations: none Exercise/Sports Limitations: none May Resume Sexual Activity: when tolerated Shower/Bathe: no limitations Driving or Machine Use: no limitations (as long as you are off of pain meds) . Instructions / Follow-Up Instructions / Follow-Up Please come to Dr. Asher's office on Thursday at 10AM to have your stent removed. Discharge Diet Recommended Diet: Regular Diet Procedures Procedures Performed: Cystoscopy, Left Ureteroscopy, Laser Lithotripsy; Left Ureteral Stent ([id number] with string) Pending Studies Studies pending at discharge: no Medical Emergencies . Who to Call and When: Medical Emergencies: If at any time you feel your situation is an emergency, please call 911 immediately. . Non-Emergent Contact Non-Emergency issues call your: Urologist Call Non-Emergent contact if: you have a fever, temperature is above 101.5, your pain is not controlled, your pain is worsening . . "Provider Documentation" section prepared by Michael Oh. . VTE Core Measure Inpt VTE Proph given/why not?: Treatment not indicated
[2016-08-19] MEDS ORDERED: HYDROCODONE/ACETAMOPHEN 5/325MG TAB PO PRN ×2 (11:30)
[2016-08-19] MEDS ORDERED: ACETAMINOPHEN 325 MG TAB PO PRN (11:30)
--- NOTE | 2016-08-19 12:07 | Anesthesiology Progress Note ---
Anesthesia Post Op Note Date & Time August 19, 2016 at 12:08 Vital Signs Pain Intensity: 0 Vital Signs Past 12 Hours Date Time Temp Pulse Resp B/P Pulse Ox O2 Delivery O2 Flow Rate FiO2 08/19/16 12:00 36.7 67 16 123/58 95 Room Air 08/19/16 11:50 68 16 129/55 95 Room Air 08/19/16 11:40 67 16 116/49 99 Mask 10 08/19/16 11:30 66 16 117/54 99 Mask 10 08/19/16 11:21 37 72 16 108/53 98 Mask 10 08/19/16 09:59 36.6 62 20 159/64 98 Room Air Notes Mental Status: alert / awake / arousable, participated in evaluation Pt Amnestic to Procedure: Yes Nausea / Vomiting: adequately controlled Pain: adequately controlled Airway Patency, RR, SpO2: stable & adequate BP & HR: stable & adequate Hydration State: stable & adequate Anesthetic Complications: no major complications apparent
[2016-08-19 12:10] VITALS: BP 120/48; PULSE 73; TEMP 36.5; O2SAT 95
[2016-08-19 12:40] VITALS: BP 102/56; PULSE 68; TEMP 36.5; O2SAT 94
--- NOTE | 2016-08-19 12:53 | OPERATIVE REPORT ---
DATE OF OPERATION: 08/19/2016 PREOPERATIVE DIAGNOSIS: Left distal ureteral calculus. POSTOPERATIVE DIAGNOSIS: Left distal ureteral calculus. PROCEDURES PERFORMED: Cystoscopy, left ureteroscopy, left laser lithotripsy and left ureteral stent placement 6 [place] x 24 cm. ANESTHESIA: General. ESTIMATED BLOOD LOSS: Zero. URINE OUTPUT: Not recorded. SPECIMENS: None. COMPLICATIONS: None. DESCRIPTION OF THE PROCEDURE: Madelyn Sharp was identified in the preoperative holding area. Appropriate informed consents were reviewed, completed and the patient was transported to the operating suite. Upon arrival, she received the appropriate preoperative antibiotics in the form of ciprofloxacin as well as general anesthesia. Following sterile prep and drape, I gently inserted a 22-[place] cystoscope with a 30-degree lens. Full inspection of the bladder was carried out without any findings of note. Ureteral orifices were in orthotopic position and there were no stones or tumors within the bladder. I then turned my attention to the left ureteral orifice and cannulated it with a sensor wire and a 6 [place] open-ended catheter. Wire advanced to the kidney without difficulty and there was a clear efflux of urine. I withdrew the 6-[place] open-ended catheter and I re-entered the bladder with a semirigid ureteroscope. I gently guided this into the distal ureter. Several centimeters above the UVJ, I encountered a yellow appearing calculus filling the lumen of the ureter. I passed a 400 micron laser fiber and I fragmented this into numerous pieces. These all were subsequently irrigated out of the ureter extremely easily. I ultimately did encounter a second calculus just above this, again fragmented and irrigated those pieces out of the ureter and then after clearing the distal ureter, I passed my scope through to its maximal extent which got me very close to the UPJ. There were no stones or other abnormalities noted in the ureter. Utilizing a safety wire which was still in place, I placed a 6 [place] 24 cm double-J ureteral stent with a string attached to it. There was a good curl in the kidney as well as the bladder. I emptied the bladder and concluded the case. There were no complications. I attest to the content of the Intraoperative Record and any orders documented therein. Any exceptio ns are noted below.
[2016-08-19] MEDS ORDERED: TAMSULOSIN HCL 0.4 MG CAP PO SCH (21:00)
[2016-12-09] MEDS ORDERED: MULT-190 PO (12:48)
[2016-12-09] MEDS ORDERED: HYDR12.56 PO (12:48)
[2016-12-09] MEDS ORDERED: ATOR-26 PO (12:48)
== END 2016-08-19 13:00 | disposition home or self-care (01) ==
LOC: C.ACU 09:23
PROVIDERS: ATTEND Urology
DX: N20.1 Calculus of ureter (principal); I25.10 Atherosclerotic heart disease of native coronary artery without angina pectoris; F32.9 Major depressive disorder, single episode, unspecified; E78.5 Hyperlipidemia, unspecified; I10 Essential (primary) hypertension; K64.8 Other hemorrhoids; M54.17 Radiculopathy, lumbosacral region; I73.9 Peripheral vascular disease, unspecified; Z82.49 Family history of ischemic heart disease and other diseases of the circulatory system; Z83.3 Family history of diabetes mellitus; Z80.1 Family history of malignant neoplasm of trachea, bronchus and lung; Z80.3 Family history of malignant neoplasm of breast; Z87.891 Personal history of nicotine dependence; Z79.82 Long term (current) use of aspirin; Z79.899 Other long term (current) drug therapy

== ENCOUNTER → 2016-09-03 | Outpatient (CLI) | payer OTHER ==
[~2016-09-03] MED LIST changes: +ATOR-26 PO; +CIPR-255 PO; -CIPROFLOXACIN / D5W 400 MG IV SCH; +HYDR12.56 PO; -LACTATED RINGER'S 1000ML 1,000 ML IV SCH; +MULT-190 PO; -TAMS0.4C38 PO
--- NOTE | 2016-09-03 11:32 | DIAGNOSTIC IMAGING REPORT ---
[facility] CLINICAL HISTORY: NEPHROLITHIASIS COMPARISON STUDY: 07/28/2016 FINDINGS: There are right upper quadrant calcifications, consistent with gallbladder calculi. Small calcifications project over the left renal shadow, likely vascular calcifications. The previously suspected distal left ureteral calculus is not visualized. There is no pathologic bowel dilatation. IMPRESSION: 1. No evidence of pathologic bowel dilatation 2. Cholelithiasis 3. No ureteral calculi are visualized on conventional radiographic imaging Electronically signed by: Lenin Copeland M.D. 09/03/2016 11:30 AM Dictated Date/Time: 09/03/2016 11:28 AM
== END | disposition home or self-care (01) ==
LOC: C.RAD 10:55
PROVIDERS: ATTEND Urology
DX: N20.0 Calculus of kidney (principal); K80.20 Calculus of gallbladder without cholecystitis without obstruction

== ENCOUNTER → 2016-10-24 | Outpatient (CLI) | payer OTHER ==
[2016-10-24 12:24] LABS: BASO % 0.6 %; BASO ABS # 0.04 K/uL (0-0.2); COMPLETE YES; EOS % 3.9 %; HEMATOCRIT 41.8 % (37-47); IG% 0.1 %; LYMPH % 32.3 %; LYMPH ABS # 2.34 K/uL (1.2-3.4); MEAN CELL VOLUME 96.5 fL (80-100); MEAN CORPUSCULAR HEMOGLOBIN 32.6 pg (25-34); MEAN CORPUSCULAR HGB CONC 33.7 g/dl (32-36); MEAN PLATELET VOLUME 10.4 fL (7.4-10.4); MONO % 8.6 %; NEUT % 54.5 %; PLATELET COUNT 221 K/uL (130-400); RED BLOOD COUNT 4.33 M/uL (4.2-5.4); WHITE BLOOD COUNT 7.24 K/uL (4.8-10.8)
[2016-10-24 12:41] LABS: ALT/SGPT 41 U/L (12-78); AST/SGOT 33 U/L (15-37); BLOOD UREA NITROGEN 21 mg/dl (7-18); BUN/CREATININE RATIO 23.5 (10-20); CALCIUM 9.3 mg/dl (8.5-10.1); CARBON DIOXIDE 29 mmol/L (21-32); CHLORIDE 108 mmol/L (98-107); GLUCOSE 107 mg/dl (70-99); POTASSIUM 4.6 mmol/L (3.5-5.1); SODIUM 142 mmol/L (136-145)
[2016-10-24 12:52] LABS: ALKALINE PHOSPHATASE 99 U/L (45-117); CHOLESTEROL 117 mg/dl (0-200); CHOLESTEROL/HDL RATIO 2.7; HDL CHOLESTEROL 43 mg/dl; LDL CHOLESTEROL CALCULATED 45 mg/dl; TRIGLYCERIDES 143 mg/dl (0-150); VERY LOW DENSITY LIPOPROT CALC 29 mg/dl
--- NOTE | 2016-10-31 13:08 | CODING QUERY MEDICAL NECESSITY ---
SUPPORTING DIAGNOSIS NEEDED Dr. Sullivan, A supporting diagnosis is required for the test/procedure performed on this patient in order for us to be reimbursed by the patient's insurance. Please provide a supporting diagnosis for the following test/procedure listed below next to the test name along with your signature. *If there is no additional diagnosis for this patient that would support the following test/procedure please document that below next to the test/procedure. Test(s)/Procedure(s) that require a supporting diagnosis: * ([id number]) VITAMIN D ASSAY DIAGNOSIS: DATE OF SERVICE: 10/24/16 Provider Signature: Date: Thank you Ander Marquez [facility] Information Management Once completed, please kindly fax back to [phone] For questions please call [phone]
== END | disposition home or self-care (01) ==
LOC: C.LABPBG 09:37
PROVIDERS: ATTEND Internal Medicine Geriatric Medicine
DX: I25.10 Atherosclerotic heart disease of native coronary artery without angina pectoris (principal); K14.6 Glossodynia; F32.9 Major depressive disorder, single episode, unspecified; E78.5 Hyperlipidemia, unspecified; R73.9 Hyperglycemia, unspecified; I10 Essential (primary) hypertension; M19.90 Unspecified osteoarthritis, unspecified site; I73.9 Peripheral vascular disease, unspecified

== ENCOUNTER → 2016-11-11 | Outpatient (CLI) | payer OTHER ==
[2016-11-11 13:20] LABS: BLOOD UREA NITROGEN 23 mg/dl (7-18); BUN/CREATININE RATIO 25.3 (10-20); CALCIUM 9.9 mg/dl (8.5-10.1); CARBON DIOXIDE 30 mmol/L (21-32); CHLORIDE 104 mmol/L (98-107); CREATININE 0.91 mg/dl (0.60-1.20); GLUCOSE 101 mg/dl (70-99); POTASSIUM 4.4 mmol/L (3.5-5.1); SODIUM 139 mmol/L (136-145)
== END | disposition home or self-care (01) ==
LOC: C.LABPBG 09:46
PROVIDERS: ATTEND Internal Medicine Geriatric Medicine
DX: I10 Essential (primary) hypertension (principal)

== ENCOUNTER → 2017-01-05 | Day surgery (SDC) | payer OTHER ==
[2016-12-09 12:49] VITALS: Ht 147.3 cm; Wt 59.1 kg
[~2017-01-05] VITALS: Ht 147.3 cm; Wt 59.1 kg
[~2017-01-05] MED LIST changes: +500ML BSS 0.3ML EPI 1:1000PF IRRIG ONE; +ACETAMINOPHEN 325 MG TAB PO PRN; +AMVISC PLUS 0.8ML SYRINGE INT OCU ONE; -ATOR-24 PO; +ATROPINE SULFATE 0.1 MG/ML 5ML SYR IV PRN; +BRIMONIDINE TART 0.2% OP SOLN PER DROP CHARGE ONE; +BSS FLUSH ONE; -CIPR-255 PO; +ENDOCOAT 0.85ML SYRINGE INT OCU ONE; +EpHEDrine SULFATE INJ 50 MG/ML AMP IV PRN; +EpINEphrine INJ 1MG/ML AMP 1 MG/ML AMP ONE; +LACTATED RINGER'S 1000ML 500 ML IV SCH; +LIDOCAINE 4% OP SOLN DROP CHARGE ONE; +LIDOCAINE 4% OP SOLN DROP CHARGE OPR SCH; +LIDOCAINE HCL 1% MPF 2 ML VIAL ONE; +MIDAZOLAM HCL 1 MG/ML 2ML VIAL ONE; +MOXIFLOXACIN OPH SOLN PER DROP CHARGE ONE; -OXYC-57 PO; +POVIDONE-IODINE OP SOLN 30 ML BTL ONE; +PROPARACAINE 0.5% OP SOLN PER DROP CHARGE OPR SCH; +TOBRAMYCIN/DEXAMETHASONE OPH OINT PER APPLN CHARGE ONE
[2017-01-05] MEDS: PHENYLEPHRINE HCL 2.5% OP SOLN PER DROP CHARGE OPR SCH ×2 (11:16→11:23)
[2017-01-05] MEDS: TROPICAMIDE 1% OP SOLN PER DROP CHARGE OPR SCH ×2 (11:17→11:24)
[2017-01-05] MEDS: CYCLOPENTOLATE HCL 1% OP SOLN PER DROP CHARGE OPR SCH ×2 (11:18→11:25)
[2017-01-05] MEDS: KETOROLAC 0.5% OP SOLN PER DROP CHARGE OPR SCH ×2 (11:20→11:26)
[2017-01-05] MEDS: MOXIFLOXACIN OPH SOLN PER DROP CHARGE OPR SCH ×2 (11:21→11:31)
--- NOTE | 2017-01-05 12:49 | Discharge Instructions-SurgCtr ---
Discharge Instructions Date of Service Jan 05, 2017. Visit Reason for Visit: Cataract Right Eye Discharge Discharge Diagnosis / Problem: cataract right eye Discharge Goals Goal(s): Improve function Activity Recommendations Activity Limitations: per Instructions/Follow-up section Lifting Limitations: no more than 5 pounds Anesthesia . Post Anesthesia Instructions: If you have had General Anesthesia or IV Sedation: * Do not drive today. * Resume driving when surgeon permits. * Do not make important decisions or sign legal documents today. * Call surgeon for: 1. Temperature elevations greater than 101 degrees F. 2. Uncontrollable pain. 3. Excessive bleeding. 4. Persistent nausea and vomiting. 5. Medication intolerance (nausea, vomiting or rash). * For nausea and vomiting use only clear liquids such as: tea, soda, bouillon until nausea subsides, then gradually increase diet as tolerated. * If you have any concerns or questions, call your surgeon's office. If physician is unavailable and it is an emergency, call 911 or go to the nearest emergency room. . Instructions / Follow-Up Instructions / Follow-Up ACTIVITY RECOMMENDATIONS: * Light activities * You may walk outside, read, watch television. * Mild irritation and blurred vision are common for the first few days, redness around the white part of the eye is common. MEDICATIONS: Resume previous medications unless instructed otherwise by your surgeon. Eye drops (today and tomorrow): Cipro - one drop in operative eye every 2 hours while awake Prednisolone 1% - one drop in operative eye every 2 hours while awake Bromfenac - one drop in operative eye once daily SPECIAL CARE INSTRUCTIONS: * If any problems or concerns, please call Dr. García's office at . * Keep plastic shield taped over eye to sleep at night. * Keep plastic shield taped over eye except to administer eye drops. * Keep plastic shield on until office visit the following day. FOLLOW UP VISIT: Follow-up with Dr. García in the [place] office as scheduled. If not already scheduled, please call the office at . Diet Recommendations Home Diet: resume previous diet Procedures Procedures Performed: Right Cataract Phacoemulsification With Intraocular Lens Implant Pending Studies Studies pending at discharge: no Medical Emergencies . Who to Call and When: Medical Emergencies: If at any time you feel your situation is an emergency, please call 911 immediately. . Non-Emergent Contact Non-Emergency issues call your: Histology Technologist . . "Provider Documentation" section prepared by Markie García. .
[2017-01-05 12:50] VITALS: TEMP 36.4
--- NOTE | 2017-01-05 12:51 | [facility] Operative Report ---
Operative Report Operative Date Jan 05, 2017. Pre-Operative Diagnosis Right Eye Cataract Post-Operative Diagnosis Same Procedure(s) Performed Right Cataract Phacoemulsification With Intraocular Lens Implant Surgeon Dr García Patient Access Registrar Surgeon(s) None Estimated Blood Loss 0ml Findings cataract right eye Fluids (cc crystalloids) see anesthesia record Specimens None Drains none Anesthesia local with sedation Complication(s) None Disposition Recovery Room / PACU Implants mx60 24.0 Indications decreased vision right eye Description of Procedure After informed consent was obtained in the holding area the patient was wheeled back to the operating room where cardiac monitoring leads and oxygen by nasal cannula was administered by Anesthesia. Gentle IV sedation was given, and the patient's right eye was prepped and draped in usual sterile fashion. A wire lid speculum was placed into the right eye and the operating microscope was swung into position. Using 0.12 forceps and a Supersharp blade a paracentesis port was made 2 o'clock hours away from the 9 o'clock position of the patient's right eye. 1% non-preserved Lidocaine was then injected into the anterior chamber for anesthesia. A 2.0 mm keratotome blade was then used to make a shelved clear corneal incision at the 9 o'clock position of the right eye. Amvisc was injected into the anterior chamber and a cystotome and Utrata forceps were used to perform a curvilinear capsulorrhexis. BSS on a hydrodissection cannula was used to hydrodissect the lens nucleus away from the capsular bag. The phacoemulsification handpiece was then used in a stop and chop fashion to remove the lens nucleus. The irrigation and aspiration handpiece was then used to remove the residual cortical material. Amvisc was injected into the capsular bag and anterior chamber and a Bausch & Lomb MX60 24.0 Diopter intraocular lens was injected into the capsular bag. Irrigation and aspiration handpiece was used to remove the residual viscoelastic material. The wounds were hydrated and noted to be watertight. The wire lid speculum was removed from the eye. Vigamox, Brimonidine, and TobraDex ointment were placed on the eye and it was shielded. It should be noted that EndoCoat was used extensively during the case to protect the cornea endothelium. DISPOSITION: The patient tolerated the procedure well and was wheeled to the post anesthesia care unit in stable condition. I attest to the content of the Intraoperative Record and any orders documented therein. Any exceptions are noted below. I attest to the content of the Intraoperative Record and any orders documented therein. Any exceptions are noted below.
[2017-01-05 13:12] VITALS: BP 146/75; PULSE 61; O2SAT 99
--- NOTE | 2017-01-05 13:16 | Anesthesia Progress Nt - [facility] ---
Anesthesia Post Op Note Date & Time Jan 05, 2017 at 13:16 Vital Signs Pain Intensity: 0 Vital Signs Past 12 Hours Date Time Temp Pulse Resp B/P (MAP) Pulse Ox O2 Delivery O2 Flow Rate FiO2 01/05/17 13:12 61 16 146/75 (98) 99 Room Air 01/05/17 12:50 36.4 61 16 121/68 (85) 99 Room Air 01/05/17 11:10 36.5 63 18 132/70 (90) 95 Room Air Notes Mental Status: alert / awake / arousable, participated in evaluation Pt Amnestic to Procedure: Yes Nausea / Vomiting: adequately controlled Pain: adequately controlled Airway Patency, RR, SpO2: stable & adequate BP & HR: stable & adequate Hydration State: stable & adequate Anesthetic Complications: no major complications apparent
== END | disposition home or self-care (01) ==
LOC: X.SURG 10:59
PROVIDERS: ATTEND Ophthalmology
DX: H25.11 Age-related nuclear cataract, right eye (principal); F32.9 Major depressive disorder, single episode, unspecified; I10 Essential (primary) hypertension

== ENCOUNTER → 2017-01-19 | Day surgery (SDC) | payer OTHER ==
[2017-01-15 12:03] VITALS: Ht 147.3 cm; Wt 59.1 kg
[~2017-01-19] VITALS: Ht 147.3 cm; Wt 59.1 kg
[~2017-01-19] MED LIST changes: +LIDOCAINE 4% OP SOLN DROP CHARGE OPL SCH; -LIDOCAINE 4% OP SOLN DROP CHARGE OPR SCH; +PROPARACAINE 0.5% OP SOLN PER DROP CHARGE OPL SCH; -PROPARACAINE 0.5% OP SOLN PER DROP CHARGE OPR SCH
[2017-01-19] MEDS: PHENYLEPHRINE HCL 2.5% OP SOLN PER DROP CHARGE OPL SCH ×2 (13:09→13:17)
[2017-01-19] MEDS: TROPICAMIDE 1% OP SOLN PER DROP CHARGE OPL SCH ×2 (13:10→13:18)
[2017-01-19] MEDS: CYCLOPENTOLATE HCL 1% OP SOLN PER DROP CHARGE OPL SCH ×2 (13:11→13:19)
[2017-01-19] MEDS: KETOROLAC 0.5% OP SOLN PER DROP CHARGE OPL SCH ×2 (13:12→13:20)
[2017-01-19] MEDS: MOXIFLOXACIN OPH SOLN PER DROP CHARGE OPL SCH ×2 (13:14→13:24)
--- NOTE | 2017-01-19 14:25 | Discharge Instructions-SurgCtr ---
Discharge Instructions Date of Service Jan 19, 2017. Visit Reason for Visit: Left Cataract Discharge Discharge Diagnosis / Problem: cataract left eye Discharge Goals Goal(s): Improve function Activity Recommendations Activity Limitations: per Instructions/Follow-up section Lifting Limitations: no more than 5 pounds Anesthesia . Post Anesthesia Instructions: If you have had General Anesthesia or IV Sedation: * Do not drive today. * Resume driving when surgeon permits. * Do not make important decisions or sign legal documents today. * Call surgeon for: 1. Temperature elevations greater than 101 degrees F. 2. Uncontrollable pain. 3. Excessive bleeding. 4. Persistent nausea and vomiting. 5. Medication intolerance (nausea, vomiting or rash). * For nausea and vomiting use only clear liquids such as: tea, soda, bouillon until nausea subsides, then gradually increase diet as tolerated. * If you have any concerns or questions, call your surgeon's office. If physician is unavailable and it is an emergency, call 911 or go to the nearest emergency room. . Instructions / Follow-Up Instructions / Follow-Up ACTIVITY RECOMMENDATIONS: * Light activities * You may walk outside, read, watch television. * Mild irritation and blurred vision are common for the first few days, redness around the white part of the eye is common. MEDICATIONS: Resume previous medications unless instructed otherwise by your surgeon. Eye drops (today and tomorrow): Cipro - one drop in operative eye every 2 hours while awake Prednisolone 1% - one drop in operative eye every 2 hours while awake Bromfenac - one drop in operative eye once daily SPECIAL CARE INSTRUCTIONS: * If any problems or concerns, please call Dr. García's office at . * Keep plastic shield taped over eye to sleep at night. * Keep plastic shield taped over eye except to administer eye drops. * Keep plastic shield on until office visit the following day. FOLLOW UP VISIT: Follow-up with Dr. García in the [place] office as scheduled. If not already scheduled, please call the office at . Diet Recommendations Home Diet: resume previous diet Procedures Procedures Performed: Left Cataract Phacoemulsification With Intraocular Lens Implant Pending Studies Studies pending at discharge: no Medical Emergencies . Who to Call and When: Medical Emergencies: If at any time you feel your situation is an emergency, please call 911 immediately. . Non-Emergent Contact Non-Emergency issues call your: Supervisor Reactor Fueling . . "Provider Documentation" section prepared by Markie García. .
[2017-01-19 14:27] VITALS: TEMP 36.5
--- NOTE | 2017-01-19 14:27 | [facility] Operative Report ---
Operative Report Operative Date Jan 19, 2017. Pre-Operative Diagnosis Left Eye Cataract Post-Operative Diagnosis Same Procedure(s) Performed Left Cataract Phacoemulsification With Intraocular Lens Implant Surgeon Dr García Clockmaker Apprentice Surgeon(s) None Estimated Blood Loss 0ml Findings cataract left eye Fluids (cc crystalloids) see anesthesia record Specimens None Drains none Anesthesia local with sedation Complication(s) None Disposition Recovery Room / PACU Implants mx60 23.0 Indications decreased vision left eye Description of Procedure After informed consent was obtained in the holding area the patient was wheeled back to the operating room where cardiac monitoring leads and oxygen by nasal cannula was administered by Anesthesia. Gentle IV sedation was given, and the patient's left eye was prepped and draped in usual sterile fashion. A wire lid speculum was placed into the left eye and the operating microscope was swung into position. Using 0.12 forceps and a Supersharp blade a paracentesis port was made 2 o'clock hours away from the 3 o'clock position of the patient's left eye. 1% non-preserved Lidocaine was then injected into the anterior chamber for anesthesia. A 2.0 mm keratotome blade was then used to make a shelved clear corneal incision at the 3 o'clock position of the left eye. Amvisc was injected into the anterior chamber and a cystotome and Utrata forceps were used to perform a curvilinear capsulorrhexis. BSS on a hydrodissection cannula was used to hydrodissect the lens nucleus away from the capsular bag. The phacoemulsification handpiece was then used in a stop and chop fashion to remove the lens nucleus. The irrigation and aspiration handpiece was then used to remove the residual cortical material. Amvisc was injected into the capsular bag and anterior chamber and a Bausch & Lomb MX60 23.0 Diopter intraocular lens was injected into the capsular bag. Irrigation and aspiration handpiece was used to remove the residual viscoelastic material. The wounds were hydrated and noted to be watertight. The wire lid speculum was removed from the eye. Vigamox, Brimonidine, and TobraDex ointment were placed on the eye and it was shielded. It should be noted that EndoCoat was used extensively during the case to protect the cornea endothelium. DISPOSITION: The patient tolerated the procedure well and was wheeled to the post anesthesia care unit in stable condition. I attest to the content of the Intraoperative Record and any orders documented therein. Any exceptions are noted below. I attest to the content of the Intraoperative Record and any orders documented therein. Any exceptions are noted below.
--- NOTE | 2017-01-19 14:41 | Anesthesia Progress Nt - [facility] ---
Anesthesia Post Op Note Date & Time Jan 19, 2017 at 14:40 Vital Signs Pain Intensity: 0 Vital Signs Past 12 Hours Date Time Temp Pulse Resp B/P (MAP) Pulse Ox O2 Delivery O2 Flow Rate FiO2 01/19/17 14:27 36.5 61 16 119/70 (86) 96 Room Air 01/19/17 13:03 36.5 62 16 129/68 (88) 94 Room Air Notes Mental Status: alert / awake / arousable, participated in evaluation Pt Amnestic to Procedure: Yes Nausea / Vomiting: adequately controlled Pain: adequately controlled Airway Patency, RR, SpO2: stable & adequate BP & HR: stable & adequate Hydration State: stable & adequate Anesthetic Complications: no major complications apparent
[2017-01-19 14:47] VITALS: BP 134/73; PULSE 62; O2SAT 96
== END | disposition home or self-care (01) ==
LOC: X.SURG 12:44
PROVIDERS: ATTEND Ophthalmology
DX: H25.12 Age-related nuclear cataract, left eye (principal); I10 Essential (primary) hypertension; I51.9 Heart disease, unspecified; F32.9 Major depressive disorder, single episode, unspecified; H35.3130 Nonexudative age-related macular degeneration, bilateral, stage unspecified; Z79.899 Other long term (current) drug therapy

== ENCOUNTER → 2017-03-09 | Outpatient (CLI) | payer OTHER ==
[~2017-03-09] MED LIST changes: -500ML BSS 0.3ML EPI 1:1000PF IRRIG ONE; -ACETAMINOPHEN 325 MG TAB PO PRN; -AMVISC PLUS 0.8ML SYRINGE INT OCU ONE; -ATROPINE SULFATE 0.1 MG/ML 5ML SYR IV PRN; -BRIMONIDINE TART 0.2% OP SOLN PER DROP CHARGE ONE; -BSS FLUSH ONE; -ENDOCOAT 0.85ML SYRINGE INT OCU ONE; -EpHEDrine SULFATE INJ 50 MG/ML AMP IV PRN; -EpINEphrine INJ 1MG/ML AMP 1 MG/ML AMP ONE; -LACTATED RINGER'S 1000ML 500 ML IV SCH; -LIDOCAINE 4% OP SOLN DROP CHARGE ONE; -LIDOCAINE 4% OP SOLN DROP CHARGE OPL SCH; -LIDOCAINE HCL 1% MPF 2 ML VIAL ONE; -MIDAZOLAM HCL 1 MG/ML 2ML VIAL ONE; -MOXIFLOXACIN OPH SOLN PER DROP CHARGE ONE; -POVIDONE-IODINE OP SOLN 30 ML BTL ONE; -PROPARACAINE 0.5% OP SOLN PER DROP CHARGE OPL SCH; -TOBRAMYCIN/DEXAMETHASONE OPH OINT PER APPLN CHARGE ONE
--- NOTE | 2017-03-09 14:45 | MAMMOGRAPHY REPORT ---
BILATERAL DIGITAL SCREENING MAMMOGRAM TOMOSYNTHESIS WITH CAD: 03/09/2017 CLINICAL HISTORY: Routine screening. Patient has no complaints. TECHNIQUE: Breast tomosynthesis in addition to standard 2D mammography was performed. Current study was also evaluated with a Computer Aided Detection (CAD) system. COMPARISON: Comparison is made to exams dated: 03/05/2016 mammogram, 03/02/2015 mammogram, 4 ultrasound, 03/15/2014 mammogram, 03/01/2014 mammogram, and 02/28/2013 mammogram - [facility]. BREAST COMPOSITION: The tissue of both breasts is almost entirely fatty. FINDINGS: No suspicious masses, calcifications, or areas of architectural distortion are noted in ei ther breast. There has been no significant interval change compared to prior exams. IMPRESSION: ACR BI-RADS CATEGORY 1: NEGATIVE There is no mammographic evidence of malignancy. A 1 year screening mammogram is recommended. The pa tient will receive written notification of the results. Approximately 10% of breast cancers are not detected with mammography. A negative mammographic report should not delay biopsy if a clinically suggestive mass is present. Jeannie Peacock M.D. /:03/09/2017 08:27:34 [employer]icated [employer]: Scott Marshall, M, [facility] letter sent: Normal 1/2 BI-RADS Code: ACR BI-RADS Category 1: Negative
== END | disposition home or self-care (01) ==
LOC: C.MAMM 07:48
PROVIDERS: ATTEND Internal Medicine Geriatric Medicine
DX: Z12.31 Encounter for screening mammogram for malignant neoplasm of breast (principal)

== ENCOUNTER → 2017-11-04 | Outpatient (CLI) | payer OTHER ==
[2017-11-04 13:52] LABS: ALBUMIN 3.9 gm/dl (3.4-5.0); ALKALINE PHOSPHATASE 86 U/L (45-117); ALT/SGPT 52 U/L (12-78); AST/SGOT 43 U/L (15-37); BLOOD UREA NITROGEN 25 mg/dl (7-18); CALCIUM 9.6 mg/dl (8.5-10.1); CARBON DIOXIDE 27 mmol/L (21-32); CHOLESTEROL 124 mg/dl (0-200); CREATININE 0.89 mg/dl (0.60-1.20); GLUCOSE 107 mg/dl (70-99); LDL CHOLESTEROL CALCULATED 63 mg/dl; POTASSIUM 4.1 mmol/L (3.5-5.1); SODIUM 139 mmol/L (136-145); TOTAL PROTEIN 7.5 gm/dl (6.4-8.2)
== END | disposition home or self-care (01) ==
LOC: C.LABPBG 10:10
PROVIDERS: ATTEND Internal Medicine Geriatric Medicine
DX: I10 Essential (primary) hypertension (principal); E78.5 Hyperlipidemia, unspecified; R73.9 Hyperglycemia, unspecified